=== PATIENT | male | born 1970 | race Caucasian/White ===

== ENCOUNTER 2016-06-16 13:13 | Outpatient (CLI) | payer OTHER ==
[2016-06-16] MEDS ORDERED: BUFFERED LIDOCAINE 10 ML SYRINGE IU ONE (14:13)
[2016-06-16] MEDS ORDERED: GADOPENTETATE DIMEGLUMINE 5 ML VIAL IVP ONE (14:13)
[2016-06-16] MEDS ORDERED: IOTHALAMATE MEGLUMINE 50 ML VIAL IU ONE (14:13)
== END 2016-06-16 13:14 | disposition home or self-care (01) ==
DX: S43.431A Superior glenoid labrum lesion of right shoulder, initial encounter (principal); M19.011 Primary osteoarthritis, right shoulder
CPT/HCPCS: 23350; 73222; 77002; Q9961

== ENCOUNTER 2017-06-07 07:35 | Outpatient (CLI) | payer OTHER ==
[2017-06-07] MEDS ORDERED: IOTHALAMATE MEGLUMINE 50 ML VIAL IVP ONE ×2 (07:36→10:51)
[2017-06-07] MEDS ORDERED: GADOPENTETATE DIMEGLUMINE 5 ML VIAL IVP ONE ×3 (07:36→10:51)
[2017-06-07] MEDS ORDERED: LIDOCAINE 1% 10 ML MDV ONE (09:50)
[2017-06-07] MEDS ORDERED: IOTHALAMATE MEGLUMINE 50 ML VIAL ONE (09:51)
[2017-06-07] MEDS ORDERED: LIDOCAINE 1% 10 ML MDV SUBQ ONE (10:51)
[2017-06-07] MEDS ORDERED: BUFFERED LIDOCAINE 10 ML SYRINGE IU ONE (10:51)
--- NOTE | 2017-06-07 12:44 | MRI Preliminary Report ---
Exam: MRI ARTHROGRAM SHOULDER RT IMPRESSION: 1. Diffuse tearing throughout the labrum including superior component extending anterior to posterior (SLAP) and full-thickness components at the posterior and inferior aspects where there tiny paralabr al cysts. 2. Progression of cartilage loss at the glenoid with deep partial to full-thickness loss and fissurin g/tearing at the posterior inferior aspect. 3. Minimal supraspinatus tendinopathy with subtle articular surface fraying. 4. Minimal infraspinatus tendinopathy with subtle partial thickness intrasubstance tear. 5. No discernible intact middle glenohumeral ligament fibers visualized. This may be congenital versu s sequelae of old trauma. 6. Mild acromioclavicular degenerative change. [facility] SECTION SITE ID: [id number]
--- NOTE | 2017-06-07 14:15 | MRI Report ---
EXAM: RIGHT SHOULDER MRI ARTHROGRAM WITH CONTRAST EXAM DATE: 06/07/2017 11:14 AM. CLINICAL HISTORY: Shoulder pain. COMPARISON: MR arthrogram 06/16/2016. TECHNIQUE: Multiplanar, multisequence T1-weighted and fluid-sensitive sequences of the shoulder after an arthrographic injection of dilute gadolinium, dictated under a separate exam. Other: None. FINDINGS: Acromioclavicular Region: The acromion is With mild anterior downsloping. Mild degenerative change at the joint. The coracoacromial and coracoclavicular ligaments are intact. Minimal fluid without contr ast in the subacromial/subdeltoid bursa. Glenohumeral Region: No subluxation. No loose bodies. Diffuse shallow partial-thickness cartilage los s with small focus of deep partial full-thickness loss and fissuring/tearing at the posterior glenoid , progressed. Distortion at the superior glenohumeral ligament. No appreciable middle glenohumeral li gament fibers. Bone Marrow: No fracture or bone lesion. Mild bone marrow edema and subchondral cysts at the posterio r and inferior glenoid. Labrum: Deep partial-thickness undersurface tear superior aspect extending anterior to posterior. [place] p partial to full-thickness tearing throughout the posterior and inferior labrum with several small p aralabral cyst. This is similar to previous. Biceps Tendon: The long head of the biceps tendon and biceps jose are intact. Musculature/Rotator Cuff: Minimal biceps tendinopathy with minimal articular surface fraying. No larg e contrast-filled tear. Minimal infraspinatus tendinopathy with tiny partial-thickness intrasubstance tear at the insertion o f the anterior fibers. Teres minor and subscapularis tendons are intact. No edema or fatty atrophy. Other: The subcutaneous tissues are unremarkable. IMPRESSION: 1. Diffuse tearing throughout the labrum including superior component extending anterior to posterior (SLAP) and full-thickness components at the posterior and inferior aspects where there tiny paralabr al cysts. 2. Progression of cartilage loss at the glenoid with deep partial to full-thickness loss and fissurin g/tearing at the posterior inferior aspect. 3. Minimal supraspinatus tendinopathy with subtle articular surface fraying. 4. Minimal infraspinatus tendinopathy with subtle partial thickness intrasubstance tear. 5. No discernible intact middle glenohumeral ligament fibers visualized. This may be congenital versu s sequelae of old trauma. 6. Mild acromioclavicular degenerative change. [facility] SECTION Referring Provider Line: [phone] SITE ID: [id number]
--- NOTE | 2017-06-09 14:36 | XRAY Report ---
DATE OF SERVICE: 06/07/2017 RIGHT SHOULDER ARTHROGRAM: 06/07/2017 COMPARISON STUDY: Right shoulder arthrogram, 06/16/2016. INDICATION: Persistent right shoulder pain. TECHNIQUE - FINDINGS Risks and benefits were discussed with the patient who desired to proceed. A standard timeout was performed, which confirmed the patient's name, date of and right shoulder as the correct joint. The patient was prepped and draped in normal sterile fashion, 6 mL of buffered lidocaine 1% were used for local anesthesia. The joint was accessed using a 20-gauge spinal needle, 12 mL of solution were injected into the joint under fluoroscopic guidance. The solution contained 10 mL of lidocaine 1%, 10 mL of normal saline, and 0.1 mL of Gadavist. There were no immediate complications, and the patient was escorted to the MRI suite. IMPRESSION: SUCCESSFUL RIGHT SHOULDER ARTHROGRAM. TD: 06/07/2017 19:12 CARYN
== END 2017-06-07 07:36 | disposition home or self-care (01) ==
LOC: DI 07:35
PROVIDERS: ATTEND Family Medicine
DX: S43.431A Superior glenoid labrum lesion of right shoulder, initial encounter (principal); S46.811A Strain of other muscles, fascia and tendons at shoulder and upper arm level, right arm, initial encounter; M19.011 Primary osteoarthritis, right shoulder
CPT/HCPCS: 23350; 73222; 77002; Q9961

== ENCOUNTER 2017-08-06 08:31 | Outpatient (CLI) | payer OTHER ==
--- NOTE | 2017-08-07 04:47 | MRI Report ---
EXAM: MRI CERVICAL SPINE WITHOUT CONTRAST EXAM DATE: 08/06/2017 10:07 AM. CLINICAL HISTORY: CERVICALGIA, right neck and shoulder pain, bilateral hand numbness. COMPARISONS: None. TECHNIQUE: Multiplanar, multisequence T1-weighted and fluid-sensitive sequences of the cervical spine without contrast. Other: None. FINDINGS: Neurologic Structures: The visualized posterior fossa structures are unremarkable. No cord signal abn ormality. Alignment: No scoliosis or spondylolisthesis. Bone Marrow: No gross fractures or bone lesions. No marrow edema. Interspace Levels/Facets: C1-C2: Unremarkable. C2-C3: Unremarkable. C3-C4: Mild left facet hypertrophy. No central canal or neural foraminal narrowing. C4-C5: There is facet hypertrophy and uncovertebral osteophytosis with moderate right neural foramina l narrowing. No central canal or left neural foraminal narrowing. C5-C6: There is a disk osteophyte complex with mild central canal narrowing. There is uncovertebral o steophytosis with mild right and moderate left neural foraminal narrowing. C6-C7: There is uncovertebral osteophytosis with mild left neural foraminal narrowing. No central can al or right neural foraminal narrowing. C7-T1: Unremarkable. Musculature: Normal. No edema or fatty atrophy. Other: The paravertebral and prevertebral soft tissues are normal. IMPRESSION: 1. C5-C6 disk osteophyte complex with mild central canal narrowing. 2. Moderate right C4-C5 and moderate left C5-C6 neural foraminal narrowing. Mild right C5-C6 and mild left C6-C7 neural foraminal narrowing. [facility] Referring Provider Line: [phone] SITE ID: [id number]
== END 2017-08-06 08:32 | disposition home or self-care (01) ==
LOC: DI 08:31
PROVIDERS: ATTEND Family Medicine
DX: M47.892 Other spondylosis, cervical region (principal)
CPT/HCPCS: 72141

== ENCOUNTER 2018-09-14 08:44 | Day surgery (SDC) | payer OTHER ==
[2018-09-14] MEDS ORDERED: LACTATED RINGERS 1,000 ML IV ONE (09:15)
[2018-09-14] MEDS ORDERED: MIDAZOLAM 2 MG/2 ML VIAL IVP ONE (09:54)
[2018-09-14] MEDS ORDERED: fentaNYL 250 MCG/5 ML VIAL IVP ONE (09:54)
[2018-09-14 10:47] VITALS: BP 125/85
== END 2018-09-14 08:45 | disposition home or self-care (01) ==
LOC: SDS 08:44
PROVIDERS: ATTEND Internal Medicine Gastroenterology
PROC: 0DBH8ZZ Excision of Cecum, Via Natural or Artificial Opening Endoscopic (ICD-10-PCS; 2018-09-14)
PROC: 0DBH8ZZ Excision of Cecum, Via Natural or Artificial Opening Endoscopic (ICD-10-PCS; principal; 2018-09-14 10:15)
DX: K62.5 Hemorrhage of anus and rectum (principal); R19.4 Change in bowel habit; D12.0 Benign neoplasm of cecum; D12.5 Benign neoplasm of sigmoid colon; F17.210 Nicotine dependence, cigarettes, uncomplicated; E66.9 Obesity, unspecified; Z68.30 Body mass index [BMI] 30.0-30.9, adult; G47.30 Sleep apnea, unspecified
CPT/HCPCS: 45380; 45385; J3010; J7120

== ENCOUNTER 2019-01-04 06:08 | Emergency (ER) | payer OTHER ==
[2019-01-04 06:18] VITALS: BP 127/81
--- NOTE | 2019-01-04 06:38 | ED Physician Documentation ---
PD HPI LOWER EXT INJURY - Stated complaint Stated Complaint: RT KNEE PAIN - Chief complaint Chief Complaint: Ext Problem - History obtained from History obtained from: Patient - History of Present Illness PD HPI LOW EXT INJURY LOCATION: Right, Knee Type of injury: Twist Where injury occurred: Park Timing - onset: Yesterday Timing - details: Abrupt onset, Still present Improved by: Rest, Immobilization Worsened by: Moving, Palpating Associated symptoms: Swelling. No: Weakness, Numbness, Tingling Contributing factors: No: Anticoagulated Similar symptoms before: Diagnosis (meniscus tear) Recently seen: Not recently seen - Additional information Additional information: Previously well 48-year-old male with a prior history of meniscus tear to both of his knees was playing tennis with his daughter when he planted his foot and continued forward making a valgus force to the knee. He has persistence of pain if he is walking or moves his leg in a certain position he does not have pain at rest. He has some swelling present and he states this feels different than when he had his meniscus tear. He does not feel instability in the knee. Review of Systems Constitutional: denies: Fever Ears: denies: Ear pain Nose: denies: Congestion Throat: denies: Sore throat Cardiac: denies: Palpitations Respiratory: denies: Dyspnea GI: denies: Vomiting Musculoskeletal: reports: Joint pain, Joint swelling, Pain with weight bearing. denies: Neck pain, Back pain Neurologic: denies: Generalized weakness, Focal weakness, Numbness PD PAST MEDICAL HISTORY - Past Medical History Cardiovascular: None Respiratory: None Endocrine/Autoimmune: None GI: None : None HEENT: Other Psych: None Musculoskeletal: Other Derm: None - Present Medications Home Medications: Ambulatory Orders Medication Instructions Recorded Confirmed Aspirin 325 mg PO Q4HR PRN 09/14/18 09/14/18 Bupropion HCl [Bupropion HCl Sr] 150 mg PO DAILY 09/14/18 09/14/18 Sildenafil Citrate [Viagra] 50 mg PO DAILY PRN 09/14/18 09/14/18 - Allergies Allergies/Adverse Reactions: Allergies Allergy/AdvReac Type Severity Reaction Status Date / Time No Known Drug Allergies Allergy Verified 05/21/14 08:25 PD ED PE NORMAL - Vitals Vital signs reviewed: Yes (normal ) - General General: Alert and oriented X 3, No acute distress, Well developed/nourished - HEENT HEENT: Atraumatic, PERRL, EOMI - Neck Neck: Supple, no meningeal sign - Respiratory Respiratory: No respiratory distress - Derm Derm: Normal color, Warm and dry, No rash - Extremities Extremities: No deformity, No calf tenderness / cord, Other (There is mild swelling to the right knee and no pain to ROM. There is acute pain to valgus force applied and this is over the latereal joint line. There is no ligmamentous laxity to testing. ) - Neuro Neuro: Alert and oriented X 3, supplies packer 2-12 intact, No motor deficit, No sensory deficit, Normal speech Eye Opening: Spontaneous Motor: Obeys Commands Verbal: Oriented GCS Score: 15 - Psych Psych: Normal mood, Normal affect Results - Vitals Vitals: Vital Signs - 24 hr 01/04/19 06:13 Temperature 36.7 C Heart Rate 78 Respiratory 18 Rate Blood Pressure 127/81 H O2 Saturation 98 Oxygen O2 Source Room air - Rads (name of study) knee Radiology: Prelim report reviewed (Impression: 1. No fracture or other acute osseous abnormality of the knee moderate knee joint effusion. If there is a history of trauma this may be a sign of internal derangement. Consider follow- up with noncontrast MRI of the knee if clinically appropriate.), EMP read indepedently, See rad report PD MEDICAL DECISION MAKING - ED course Complexity details: reviewed results, re-evaluated patient, considered differential, d/w patient ED course: 48-year-old male with acute right knee sprain has pain in the lateral joint line he does not appear to have ligamentous laxity he does have pain with weightbearing does have a joint effusion is placed on crutches and will follow- up with orthopedics. Departure - Departure Disposition: 01 Home, Self Care Clinical Impression: Internal derangement of knee Qualifiers: Laterality: right Qualified Code(s): M23.91 - Unspecified internal derangement of right knee Condition: Stable Instructions: ED Meniscal Injury Knee Poss Follow-Up: [facility] [Provider Group] [facility] [Provider Group]
--- NOTE | 2019-01-04 07:22 | XRAY Report ---
Reason: strain lateral joint compartment pain Procedure Date: 01/04/2019 Accession Number: [id number] / [id number] Procedure: XR - Knee 4 View RT CPT Code: FULL RESULT: EXAM: RIGHT KNEE RADIOGRAPHY EXAM DATE: 01/04/2019 07:04 AM. CLINICAL HISTORY: Strain lateral joint compartment pain. COMPARISON: None. TECHNIQUE: 4 views. FINDINGS: Bones: Normal. No fractures or bone lesions. Joints: Normal alignment. No subluxation. A moderate knee joint effusion is present. Soft Tissues: Normal. No soft tissue swelling. IMPRESSION: 1. No fracture or other acute osseous abnormality of the knee. 2. Moderate knee joint effusion. If there is a history of trauma, this may be a sign of internal derangement. Consider follow-up with noncontrast MRI of the knee if clinically appropriate. [facility]
== END 2019-01-04 07:43 | disposition home or self-care (01) ==
LOC: ED 06:08
DX: M23.91 Unspecified internal derangement of right knee (principal); X50.1XXA Overexertion from prolonged static or awkward postures, initial encounter; Y93.73 Activity, racquet and hand sports; Y92.830 Public park as the place of occurrence of the external cause; Z79.82 Long term (current) use of aspirin
CPT/HCPCS: 99283; 99284

== ENCOUNTER 2019-03-08 08:23 | Day surgery (SDC) | payer OTHER ==
[~2019-03-08 08:23] MED LIST: CEFAZOLIN SODIUM IN 0.9 % NACL 2 GM/100 ML BAG IV ONE
[2019-03-08] MEDS ORDERED: MIDAZOLAM 2 MG/2 ML VIAL IVP ONE (08:24)
[2019-03-08] MEDS ORDERED: PROPOFOL 200 MG/20 ML VIAL IVP ONE (08:24)
[2019-03-08] MEDS ORDERED: fentaNYL 250 MCG/5 ML VIAL IVP ONE (08:24)
[2019-03-08] MEDS ORDERED: KETOROLAC 30 MG/ML VIAL IVP ONE (08:24)
[2019-03-08] MEDS ORDERED: DEXAMETHASONE 4 MG/ML VIAL IVP ONE (08:24)
[2019-03-08] MEDS ORDERED: LACTATED RINGERS 1,000 ML IV ONE ×2 (08:50→11:03)
--- NOTE | 2019-03-08 09:05 | ANESTHESIA ---
Pre-Anesthesia VS, & Labs - Diagnosis Right knee pain - Procedure Right knee arthroscopy Vital Signs: Temp Pulse Resp BP Pulse Ox 35.9 C L 83 16 125/84 H 99 03/08/19 08:32 03/08/19 08:32 03/08/19 08:32 03/08/19 08:32 03/08/19 08:32 Height 5 ft 10 in Weight (kg) 89.4 kg Body Mass Index 30.1 - NPO >8 hours - Lab Results Lab results reviewed: No Home Medications and Allergies Aspirin 325 mg PO Q4HR PRN 09/14/18 Bupropion HCl [Bupropion HCl Sr] 150 mg PO DAILY 09/14/18 Sildenafil Citrate [Viagra] 50 mg PO DAILY PRN 09/14/18 Allergies/Adverse Reactions: Allergies Allergy/AdvReac Type Severity Reaction Status Date / Time No Known Drug Allergies Allergy Verified 05/21/14 08:25 Anes History & Medical History - Anesthetic History Anesthesia Complications: reports: No previous complications Family history of Anesthesia Complications: Denies Family history of Malignant Hyperthermia: Denies - Medical History Cardiovascular: reports: None Pulmonary: reports: None Gastrointestinal: reports: None Urinary: reports: None Neuro: reports: None Musculoskeletal: reports: Other Endocrine/Autoimmune: reports: None Blood Disorders: reports: None Skin: reports: None Smoking Status: Current some day smoker Psychosocial: reports: No issues indicated - Surgical History General: Colonoscopy Orthopedic: Shoulder arthroplasty Exam General: Alert Mouth Opening: Greater than 4 Fingerbreadths Neck Mobility: Normal Mallampati classification: II Thyromental Distance: greater than 6 cm Respiratory: Lungs clear Cardiovascular: Regular rate Neurological: Normal speech Mental/Cognitive Status: Alert/Oriented X3 Cognitive Status: Within normal limits Plan Anesthesia Type: General Consent for Procedure(s) Verified and Reviewed: Yes Code Status: Attempt Resuscitation ASA classification: 2-Mild systemic disease Is this case an emergency?: No
[2019-03-08] MEDS ORDERED: BUPIVACAINE 0.25% PF 30 ML VIAL ONE ×2 (09:44)
[2019-03-08] MEDS ORDERED: BUPIVACAINE 0.25% PF 30 ML VIAL SUBQ ONE ×2 (10:20→10:46)
[2019-03-08] MEDS ORDERED: oxyCODONE 5 MG TABLET PO PRN (11:01)
[2019-03-08] MEDS ORDERED: ONDANSETRON 4 MG/2 ML VIAL IVP PRN (11:01)
--- NOTE | 2019-03-08 11:06 | OPERATIVE REPORT ---
Operative Report - Other Other Information/Narrative: Date of Surgery: 08 March 2019 Pre-Op Diagnosis: Right knee lateral meniscus tear Procedure: Right knee arthroscopic lateral meniscus debridement, lateral tibial plateau chondroplasty Postop Diagnosis: Same Primary Surgeon: Stan Wharton Secondary Surgeon: Titi Howard Complications: None Tourniquet Time: 38 minutes EBL: 5 cc Indication For Surgery: 48-year-old male was playing tennis 3 months ago and injured his knee when he twisted and planted. He had immediate onset pain and a popping sensation began in the lateral knee. He had an effusion. He persisted to have painful popping sensation with deep knee flexion and MRI showed a large unstable lateral meniscus tear.. The risks, benefits, and alternatives were discussed. Risks include pain, bleeding, infection, damage to nearby structures and cartilage, lack of symptom relief, need for further surgery, DVT, PE, stroke, and . Written consent was obtained. Examination Under Anesthesia: ROM equal to the contralateral side. Stable dial at 30 & 90 degrees. Stable to varus and valgus stressing at 0 & 30 degrees. IA Roverto. Negative Pivot shift. No mechanical sensation Arthroscopic Findings: No loose bodies. Synovium normal. Patella cartilage mild softening with some wear on the medial border. Trochlear cartilage soft but intact. Medial femoral condyle cartilage intact. Medial tibial plateau cartilage intact. Medial meniscus no unstable tears, the posterior horn was very diminutive. ACL was intact. PCL was intact. Lateral femoral condyle cartilage intact. Lateral tibial plateau cartilage small full-thickness rent with a slight border that was unstable this was debrided. Lateral meniscus showed a large complex parrot-beak tear that had flipped under the posterior horn. Lateral root was intact Procedure in Detail: The patient was met in the pre-operative hold area on the day of the procedure. The operative extremity was signed and questions were answered. The patient was brought to the operating room and a general anesthetic was administered. Supine position was used and bony prominences were padded. An examination under anesthesia was performed. Standard prepping and draping was performed. A time out confirmed patient identification, laterality, procedure, allergies, antibiotics, and images. An Esmarch was used to exsanguinate the limb and the tourniquet was elevated to 250 mmHg. A standard diagnostic arthroscopy of the knee was performed through anterolateral and anteromedial portal sites. The anteromedial portal was created under direct visualization after localizing with a spinal needle. The findings can be found above. I then proceeded to deliver the large tear that had tucked under the posterior horn out into the center of the joint. I then used a combination of variable angle biters and a shaver to remove the entire fragment. The shaver was used to debride the underside of the meniscus and ensure smooth edges. I then used the shaver to debride the small tibial plateau cartilage lesion.. Final images were taken and all arthroscopic fluid and instruments were removed from the knee. The incisions were closed with buried monocryl sutures. Steri strips were applied. 10 cc of 0.25% Marcaine without epinephrine was injected near the portal sites. A sterile dressing and compression stocking was placed. The patient was awakened and transferred to recovery in stable condition.
[2019-03-08] MEDS ORDERED: oxyCODONE 5 MG TABLET ONE (11:54)
[2019-03-08 12:58] VITALS: BP 117/79
== END 2019-03-08 08:24 | disposition home or self-care (01) ==
LOC: SDS 08:23
PROVIDERS: ATTEND Orthopaedic Surgery
PROC: 0SBC4ZZ Excision of Right Knee Joint, Percutaneous Endoscopic Approach (ICD-10-PCS; principal; 2019-03-08 09:45)
DX: M23.200 Derangement of unspecified lateral meniscus due to old tear or injury, right knee (principal); M23.91 Unspecified internal derangement of right knee; F17.210 Nicotine dependence, cigarettes, uncomplicated
CPT/HCPCS: 29881; A9270; J0690; J3010; J7120

== ENCOUNTER 2020-01-21 15:45 | Outpatient (CLI) | payer OTHER ==
--- NOTE | 2020-01-22 16:19 | MRI Report ---
PROCEDURE: Cervical Spine W/O INDICATIONS: Radiculopathy TECHNIQUE: Noncontrast sagittal T1 spin echo and T2 fast spin echo, sagittal STIR, foraminal oblique sagittal T2 fast spin echo, and axial gradient echo or T2 fast spin echo through the cervical spine. COMPARISON: 08/06/2017 MRI cervical spine FINDINGS: Image quality: Excellent. Alignment and Curvature: Normal cervical spine vertebral body height and alignment. Bone Marrow: Marrow demonstrates normal overall signal. Spinal Cord: Visualized spinal cord has normal size and signal. No cerebellar tonsillar herniation. Paraspinous Soft Tissues: No paravertebral masses. Prevertebral soft tissues are normal in thicknes s. C2-C3: No spinal canal or neural foraminal stenosis. C3-C4: No spinal canal stenosis. Facet and uncovertebral hypertrophy contribute to mild bilateral n eural foraminal stenosis. C4-C5: No spinal canal stenosis. Facet and uncovertebral hypertrophy contribute to moderate-severe s tenosis on the right and mild stenosis on the left. C5-C6: No spinal canal stenosis. Facet and uncovertebral hypertrophy contribute to moderate left gre ater than right right neural foraminal stenosis. C6-C7: No spinal canal stenosis. Facet and uncovertebral hypertrophy contribute to moderate bilatera l neural foraminal stenosis. C7-T1: No spinal canal or neural foraminal stenosis. IMPRESSION: Multilevel multifactorial degenerative changes contributing to varying degrees of neural foraminal st enosis, moderate-severe on the right at C4-C5 and moderate stenosis bilaterally at both C5-C6 and C6- C7. Correlate for any corresponding radicular symptoms. Findings have progressed when compared with August 2017 exam. Reviewed by: Kuldip Cullen MD on 01/22/2020 4:18 PM PDT Approved by: Kuldip Cullen MD on 01/22/2020 4:18 PM PDT Station ID: [id number]
== END 2020-01-21 15:46 | disposition home or self-care (01) ==
LOC: DI 15:45
PROVIDERS: ATTEND Student in an Organized Health Care Education/Training Program
DX: M47.812 Spondylosis without myelopathy or radiculopathy, cervical region (principal); M48.02 Spinal stenosis, cervical region
CPT/HCPCS: 72141

== ENCOUNTER 2021-08-10 12:57 | Outpatient (CLI) | payer OTHER ==
--- NOTE | 2021-08-10 15:42 | Ultrasound Report ---
PROCEDURE: Duplex Ext Veins Right INDICATIONS: NEOPLASM OF UNCERTAIN BEHAVIOR TECHNIQUE: Real-time imaging, as well as color and pulse Doppler interrogation, were performed of the lower extr emity deep veins from the inguinal ligament to the popliteal fossa. COMPARISON: None. FINDINGS: The deep veins are normally compressible, and free of intraluminal thrombus. Color and pu lse Doppler demonstrate normal phasic intraluminal flow. There is normal augmentation response to di stal compression maneuver. IMPRESSION: No evidence of right lower extremity DVT. Reviewed by: Paul De Dios MD on 08/10/2021 3:40 PM PST Approved by: Paul De Dios MD on 08/10/2021 3:40 PM PST Station ID: [id number]
== END 2021-08-10 12:58 | disposition home or self-care (01) ==
LOC: DI 12:57
PROVIDERS: ATTEND Nurse Practitioner Family
DX: D48.9 Neoplasm of uncertain behavior, unspecified (principal)

== ENCOUNTER 2023-03-15 08:10 | Emergency (ER) | payer OTHER ==
[2023-03-15] MEDS ORDERED: ASPIRIN CHEW 81 MG TABLET PO STA (08:52)
[2023-03-15 08:53] LABS: BASOPHILS # (AUTO) 0.1 10^3/uL (0.0-0.1); EOSINOPHILS # (AUTO) 0.3 10^3/uL (0.0-0.7); EOSINOPHILS % (AUTO) 6.4 %; HCT - HEMATOCRIT 44.5 % (42.0-52.0); LYMPHOCYTES # (AUTO) 1.5 10^3/uL (1.5-3.5); LYMPHOCYTES % (AUTO) 31.5 %; MEAN CORPUSCULAR HEMOGLOBIN 30.4 pg (27.0-31.0); MEAN CORPUSCULAR HGB CONC 33.7 g/dL (32.0-36.0); MEAN CORPUSCULAR VOLUME 90.1 fL (80.0-94.0); MEAN PLATELET VOLUME 9.1 fL (7.4-11.4); MONOCYTES # (AUTO) 0.4 10^3/uL (0.0-1.0); MONOCYTES % (AUTO) 7.5 %; NEUTROPHILS # (AUTO) 2.6 10^3/uL (1.5-6.6); NEUTROPHILS % (AUTO) 53.4 %; PLT - PLATELET COUNT 256 10^3/uL (130-450); RED BLOOD COUNT 4.94 10^6/uL (4.70-6.10); RED CELL DISTRIBUTION WIDTH 12.6 % (12.0-15.0); WHITE BLOOD COUNT 4.8 x10^3/uL (4.8-10.8)
--- NOTE | 2023-03-15 09:02 | XRAY Report ---
PROCEDURE: Chest 1 View X-Ray INDICATIONS: Chest pain TECHNIQUE: One view of the chest was acquired. COMPARISON: None. FINDINGS: Surgical changes and devices: None. Lungs and pleura: Low lung volumes. No dense consolidation or pleural effusion Mediastinum: Mediastinal contours appear normal. Heart size is normal. Bones and chest wall: No suspicious bony lesions. Overlying soft tissues appear unremarkable. IMPRESSION: Low lung volumes on a portable radiograph, limiting evaluation. No acute radiographic abnormality. Reviewed by: Vince Lao MD on 03/15/2023 9:01 AM PDT Approved by: Vince Lao MD on 03/15/2023 9:01 AM PDT Station ID: [id number]
[2023-03-15 09:11] LABS: ALBUMIN 4.5 g/dL (3.2-5.5); ALBUMIN/GLOBULIN RATIO 1.7 (1.0-2.2); BILIRUBIN,TOTAL 0.5 mg/dL (0.2-1.0); CALCIUM 9.7 mg/dL (8.5-10.3); TOTAL PROTEIN 7.1 g/dL (6.4-8.9)
--- NOTE | 2023-03-15 09:27 | ED Physician Documentation ---
PD HPI CHEST PAIN - Stated complaint Stated Complaint: CHEST PX,TIGHTNESS,SOA - Chief complaint Chief Complaint: Cardiac - History obtained from History obtained from: Patient - Additional information Additional information: Patient is a 52-year-old male presenting for evaluation of chest pain. Patient states that he has had intermittent episodes of chest pain in the middle of his chest that feels like a sharp sensation and then a squeezing for the past 5 days. He states that he started at rest.This morning he woke up with the pain around 620. He reports that he did have some radiation to his left arm but that has since resolved. Nothing makes his symptoms better or worse. He believes that his episodes have been lasting about an hour when they come. Denies a history of hypertension, diabetes or hyperlipidemia. Denies a family history of early coronary artery disease. Denies drug or alcohol use. No recent travel or immobilization or prior history of DVT/PE. Review of Systems Constitutional: denies: Fever Cardiac: reports: Chest pain / pressure Respiratory: denies: Dyspnea GI: denies: Abdominal Pain : denies: Dysuria Neurologic: denies: Syncope PD PAST MEDICAL HISTORY - Past Medical History Cardiovascular: None Respiratory: None Neuro: None Endocrine/Autoimmune: None GI: None : None HEENT: Other Psych: None Musculoskeletal: Other Derm: None - Past Surgical History Past Surgical History: Yes General: Colonoscopy Ortho: Shoulder arthroplasty - Present Medications Home Medications: Ambulatory Orders Medication Instructions Recorded Confirmed Aspirin 325 mg PO Q4HR PRN 09/14/18 03/08/19 Sildenafil Citrate [Viagra] 50 mg PO DAILY PRN 09/14/18 03/08/19 buPROPion HCL [Bupropion HCl Sr] 150 mg PO DAILY 09/14/18 03/08/19 - Allergies Allergies/Adverse Reactions: Allergies Allergy/AdvReac Type Severity Reaction Status Date / Time No Known Drug Allergies Allergy Verified 03/15/23 08:22 - Social History Does the pt smoke?: Yes Smoking Status: Current some day smoker Does the pt drink ETOH?: Yes Does the pt have substance abuse?: No - Immunizations Immunizations are current?: Yes PD ED PE NORMAL - General General: Alert and oriented X 3, No acute distress, Well developed/nourished - HEENT HEENT: Atraumatic - Neck Neck: Supple, no meningeal sign - Cardiac Cardiac: RRR, No murmur, Strong equal pulses - Respiratory Respiratory: No respiratory distress, Clear bilaterally - Abdomen Abdomen: Normal bowel sounds, Soft, Non tender, Non distended - Derm Derm: Warm and dry - Extremities Extremities: No edema, No calf tenderness / cord - Neuro Neuro: Alert and oriented X 3, No motor deficit, Normal speech Results - Vitals Vitals: Vital Signs - 24 hr 03/15/23 03/15/23 03/15/23 08:19 11:04 11:56 Temperature 37.7 C 37.4 C Heart Rate 88 66 65 Respiratory 16 14 15 Rate Blood Pressure 151/94 H 145/87 H 144/89 H O2 Saturation 96 100 99 Oxygen O2 Source Room air - EKG (time done) 0824 EKG releavant findings:: EKG personally interpreted by author of this note. Relevant findings are: Rate 83, normal sinus rhythm, no STEMI, no ST depressions - Labs Labs: Laboratory Tests 03/15/23 03/15/23 03/15/23 08:40 08:40 10:52 WBC 4.8 RBC 4.94 Hgb 15.0 Hct 44.5 MCV 90.1 MCH 30.4 MCHC 33.7 RDW 12.6 Plt Count 256 MPV 9.1 Neut # (Auto) 2.6 Lymph # (Auto) 1.5 [place] # (Auto) 0.4 Eos # (Auto) 0.3 Baso # (Auto) 0.1 Absolute Nucleated RBC 0.00 Nucleated RBC % 0.0 Sodium 140 Potassium 4.0 Chloride 105 Carbon Dioxide 30 Anion Gap 5.0 L BUN 19 Creatinine 1.0 Estimated GFR (MDRD) 79 L Glucose 111 H Calcium 9.7 Total Bilirubin 0.5 AST 29 ALT 48 Alkaline Phosphatase 74 Troponin I High Sens 3.0 2.8 Total Protein 7.1 Albumin 4.5 Globulin 2.6 Albumin/Globulin Ratio 1.7 Lipase 42 PD Medical Decision Making - ED course Complexity details: reviewed results, re-evaluated patient, d/w patient ED course: Patient is a 52-year-old male presenting for evaluation of chest pain. Episode started this morning upon awakening. Did not occur with exertion. EKG is reviewed and is nonischemic. High-sensitivity troponins are negative x2. Patient has no known risk factors for coronary artery disease such as family history of early CAD, hypertension, hyperlipidemia, diabetes. He is doing better here. No risk factors for pulmonary embolism. Doubt dissection as pain is not migratory. He is active [employer]. He was counseled on need [facility] Patient also counseled on strict return precautions. Departure - Departure Disposition: 01 Home, Self Care Clinical Impression: Chest pain Condition: Stable Instructions: ED Chest Pain Atypical Unkn Cause Follow-Up: [facility] [place] [Provider Group] - Within 3 Days Comments: You were evaluated for chest pain. At this time the exact cause for your chest pain is unclear and you need close follow-up with your primary care provider and may need further testing such as a stress test. [facility] for close follow-up. You do not necessarily need to see your own provider if they are not available this week but any provider that is able to see you for close follow-up. In the meanwhile I would recommend taking a baby aspirin daily. If at anytime though your symptoms are getting worse please return to the emergency department. Forms: PCP List, Activity restrictions Discharge Date/Time: 03/15/23 11:56
[2023-03-15] MEDS ORDERED: SODIUM CHLORIDE 0.9% 1,000 ML IV STA (09:49)
[2023-03-15] MEDS ORDERED: NITROGLYCERIN SL 0.4 MG TABLET SL STA (09:49)
[2023-03-15 11:58] VITALS: BP 144/89; O2SAT 99
== END 2023-03-15 11:56 | disposition home or self-care (01) ==
LOC: ED 08:10
DX: R07.9 Chest pain, unspecified (principal); F17.200 Nicotine dependence, unspecified, uncomplicated
CPT/HCPCS: 36415; 71045; 80053; 83690; 84484; 85025; 93005; 99283; 99284; A9270